=== PATIENT | male | born 1990 | race Caucasian/White ===

== ENCOUNTER 2018-05-03 06:47 | Emergency (ER) | payer OTHER ==
[2018-05-03 07:11] VITALS: BP 124/81
--- NOTE | 2018-05-03 07:29 | ED Physician Documentation ---
PD HPI UPPER EXT INJURY - Stated complaint Stated Complaint: LF INDEX FINGER INJ - Chief complaint Chief Complaint: Ext Problem - History obtained from History obtained from: Patient - History of Present Illness Location: Left, Finger (index) Type of injury: Blunt / blow (he was working on car at work, and the wrench/tool slipped and he struck finger between the tool and part of the engine. Bruising and pain in fingertip.) Where injury occurred: Work Timing - onset: Yesterday Timing - details: Abrupt onset, Still present Improved by: Immobilization Worsened by: Moving, Palpating Associated symptoms: Swelling, Discolored (bruising palmar tip of thumb. None under nail.). No: Weakness, Numbness Similar symptoms before: Has not had sx before Recently seen: Not recently seen Review of Systems Skin: denies: Abrasion (s), Laceration (s) Musculoskeletal: reports: Extremity swelling Neurologic: denies: Focal weakness PD PAST MEDICAL HISTORY - Past Medical History Cardiovascular: None Respiratory: None Neuro: None Endocrine/Autoimmune: None - Present Medications Home Medications: Ambulatory Orders Medication Instructions Recorded Confirmed Naproxen [Naprosyn] 500 mg PO BID PRN #30 tablet 05/03/18 - Allergies Allergies/Adverse Reactions: Allergies Allergy/AdvReac Type Severity Reaction Status Date / Time No Known Drug Allergies Allergy Verified 05/03/18 07:11 PD ED PE NORMAL - Vitals Vital signs reviewed: Yes - General General: Alert and oriented X 3, No acute distress, Well developed/nourished - Derm Derm: Normal color, Warm and dry - Extremities Extremities: Other (left thumb with swelling and firmness at palmar tip and palmar aspect. No blood under nail. IP joint without defomrity and he can flex and extend, though does hurt. ) Results - Vitals Vitals: Vital Signs - 24 hr 05/03/18 07:08 Temperature 36.5 C Heart Rate 58 L Respiratory 16 Rate Blood Pressure 124/81 H O2 Saturation 97 - Rads (name of study) left thumb Radiology: Prelim report reviewed (vertical fracture if distal phalanx. Not displaced. ) PD MEDICAL DECISION MAKING - ED course Complexity details: reviewed results, considered differential, d/w patient Departure - Departure Disposition: 01 Home, Self Care Clinical Impression: Closed fracture of tuft of distal phalanx of finger Condition: Stable Record reviewed to determine appropriate education?: Yes Instructions: ED Contusion Finger, ED Fx Finger Closed Follow-Up: [facility] [Provider Group] Prescriptions: Naproxen [Naprosyn] 500 mg PO BID PRN #30 tablet PRN Reason: Pain Comments: The finger will be most painful the first few days due to the swelling and bruising, and that will improve initially, then it will improve more after the initial bone healing over 7-10 days, but will be about a month for it to be not tender at all with use. Recheck with Ortho if not initially healing well over the first week. Naproxen twice daily for pain and swelling. Add Tylenol for pain 4 times daily as needed. Limited use of the left hand for 1-2 weeks as needed. Forms: Activity restrictions Discharge Date/Time: 05/03/18 08:10
--- NOTE | 2018-05-03 07:36 | XRAY Report ---
Reason: injury/pain Procedure Date: 05/03/2018 Accession Number: [id number] / [id number] Procedure: XR - Finger(s) LT CPT Code: FULL RESULT: EXAM: LEFT 2nd/ DIGIT RADIOGRAPHY EXAM DATE: 05/03/2018 07:22 AM. CLINICAL HISTORY: Injury/pain. COMPARISON: None. TECHNIQUE: 3 views. FINDINGS: Bones: Distal phalanx vertical nondisplaced fracture Joints: Normal. No subluxations. Soft Tissues: Soft tissue swelling. IMPRESSION: Distal phalanx vertical nondisplaced fracture RADIA
[2018-05-03] MEDS ORDERED: IBUPROFEN 600 MG TABLET PO STA (07:53)
[2018-05-03] MEDS ORDERED: ACETAMINOPHEN 325 MG TABLET PO STA (07:53)
== END 2018-05-03 08:10 | disposition home or self-care (01) ==
LOC: ED 06:47
DX: S62.661A Nondisplaced fracture of distal phalanx of left index finger, initial encounter for closed fracture (principal); W22.8XXA Striking against or struck by other objects, initial encounter; Y93.89 Activity, other specified; Y99.0 Civilian activity done for income or pay
CPT/HCPCS: 73140; 99283; A9270; 1040M

== ENCOUNTER 2018-11-14 09:25 | Outpatient (CLI) | payer OTHER ==
[2018-11-15 12:42] LABS: HEPATITIS C ANTIBODY NON-REACTIVE (NON-REACTIVE)
[2018-11-15 13:51] LABS: HIV AG/AB 4TH GEN NON-REACTIVE (NON-REACTIVE)
[2018-11-16 14:22] LABS: HSV 1 IGG TYPE SPECIFIC AB 5.17 index; HSV 2 IGG TYPE SPECIFIC AB <0.90 index
== END 2018-11-14 09:26 | disposition home or self-care (01) ==
LOC: LAB.WCP 09:25
PROVIDERS: ATTEND Family Medicine
DX: Z20.2 Contact with and (suspected) exposure to infections with a predominantly sexual mode of transmission (principal)
CPT/HCPCS: 36415; 81599; 86592; 86695; 86696; 86803; 87389; 87491; 87591

== ENCOUNTER 2019-05-01 15:22 | Emergency (ER) | payer OTHER ==
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
--- NOTE | 2019-05-01 16:59 | CT Report ---
Reason: neck pain Procedure Date: 05/01/2019 Accession Number: [id number] / [id number] Procedure: CT - CERVICAL SPINE WO CPT Code: FULL RESULT: EXAM: CT CERVICAL SPINE WITHOUT CONTRAST DATE: 05/01/2019 04:24 PM. HISTORY: Neck pain. COMPARISONS: None. TECHNIQUE: Thin-section axial images were acquired of the cervical spine without contrast. Post-processing: Coronal and sagittal reformats. Other: None. In accordance with CT protocol optimization, one or more of the following dose reduction techniques were utilized for this exam: automated exposure control, adjustment of mA and/or KV based on patient size, or use of iterative reconstructive technique. FINDINGS: Alignment: No scoliosis or spondylolisthesis. Bones: No fracture or bone lesion. Interspace Levels/Facets: Disk height is maintained. Facet joints appear normal in alignment. No central spinal canal stenosis. Musculature: Normal. No fatty atrophy. Other: The paravertebral and prevertebral soft tissues are unremarkable. No apical pneumothorax. IMPRESSION: Negative cervical spine CT. RADIA
[2019-05-01 17:12] VITALS: BP 135/82
== END 2019-05-01 17:15 | disposition home or self-care (01) ==
LOC: ED 15:22
DX: S16.1XXA Strain of muscle, fascia and tendon at neck level, initial encounter (principal); V43.52XA Car driver injured in collision with other type car in traffic accident, initial encounter; Y92.410 Unspecified street and highway as the place of occurrence of the external cause
CPT/HCPCS: 72125; 99284